=== PATIENT | female | born 1955 | race Caucasian/White ===

== ENCOUNTER 2019-02-09 14:19 | Emergency (ER) | payer BC, MEDICAID | END 2019-02-09 14:36 | disposition home or self-care (01) | LOC: E/R 14:36 | DX: L03.213 Periorbital cellulitis (principal) | CPT/HCPCS: 99283 ==

== ENCOUNTER → 2019-03-28 | Emergency (ER) | payer BC ==
[2019-03-28] MEDS: DIPHENHYDRAMINE 50 MG INJ IM (20:26)
[2019-03-28] MEDS: METHYLPREDNISOLONE 125 MG INJ IM (20:26)
== END | disposition home or self-care (01) ==
LOC: FTE 19:32
DX: R21 Rash and other nonspecific skin eruption (principal)
CPT/HCPCS: 96372; 99284-25